=== PATIENT | female | born 1965 | race Caucasian/White ===

== ENCOUNTER 2016-12-31 13:13 | Emergency (ER) | payer OTHER ==
[~2016-12-31] VITALS: Ht 160 cm; Wt 93.0 kg
[~2016-12-31 13:13] MED LIST: LITH300 OR; TRAM50 PO; TRIA.1%T EX; ZYRT10TA12 PO
[2016-12-31 13:15] VITALS: BP 134/85; PULSE 95; RESP 18; TEMP 98.9; O2SAT 99
--- NOTE | 2016-12-31 13:33 | PD ---
HPI . acute on chronic back pain Chief Complaint: Back/ Neck Pain or Injury Time Seen by Provider: 13:29 Travel History International Travel<30 days: No Contact w/Intl Traveler<30days: No Traveled to known affect area: No History of Present Illness HPI 51-year-old female here with acute on chronic back pain. Apparently patient had some type of injury 1 year ago that she sustained while at a restaurant, she says she has been good since then, however about a month ago she recently developed back pain out of the blue. She says she got out of her bed one morning all of a sudden she's been suffering with back pain since then. She rates the pain as 10/10 without radiation other than in her lower back. She tells me she went to another hospital and was given muscle relaxers, anti- inflammatory and pain medication. She is here today requesting similar. She denies any bowel or bladder dysfunction. She denies any saddle anesthesia. PFSH Past Medical History Blood Disorders: No Bipolar Disorder: Yes Anxiety: Yes Depression: No Cancer: No Cardiovascular Problems: No Diminished Hearing: No Endocrine: No GERD: Yes Genitourinary: No Hepatitis: No Hiatal Hernia: No Immune Disorder: No Musculoskeletal: No Neurologic: No Psychiatric: Yes (BIPOLAR) Reproductive: No Respiratory: No Ulcer: No : 4 Para: 3 : 1 Tubal Ligation: Yes Past Surgical History Abdominal Surgery: No Appendectomy: No Cardiac Surgery: No Cholecystectomy: No Ear Surgery: No Endocrine Surgery: No Genitourinary Surgery: No Gynecologic Surgery: No Oral Surgery: Yes (JAW SURGERY-MAINE FX BOTH SIDES MANDIBLES-STEEL PLATE IN [place]IN 03/26) Social History Alcohol Use: Yes (8 TALL CANS OF BEER A DAY) Tobacco Use: Yes (1 PACK DAILY X 20 YEARS) Substance Use: No (MARIJUANA OCCASIONALLY) Allergies-Medications (Allergen,Severity, Reaction): Coded Allergies: No Known Allergies (Verified , 12/31/16) Reported Meds & Prescriptions Reported Meds & Active Scripts Active Prednisone 20 Mg Tab 20 Mg PO DAILY 5 Days Flexeril (Cyclobenzaprine HCl) 5 Mg Tab 5 Mg PO TID Zyrtec (Cetirizine HCl) 10 Mg Tab 10 Mg PO DAILY Kenalog (Triamcinolone) 0.1 % Cre 0.1 % EX BID 14 Days Ultram (Tramadol HCl) 50 Mg Tab 50 Mg PO Q4HPRN FOR PAIN Reported Lithotabs ([place] Carbonate) 300 Mg Tab 100 Mg OR TID Review of Systems General / Constitutional: No: Fever Eyes: No: Visual changes HENT: No: Headaches Cardiovascular: No: Chest Pain or Discomfort Respiratory: No: Shortness of Breath Gastrointestinal: No: Abdominal Pain Genitourinary: No: Dysuria Musculoskeletal: Positive: Pain (back pain ) Skin: No Rash Neurologic: No: Weakness Psychiatric: No: Depression Endocrine: No: Polydipsia Hematologic/Lymphatic: No: Easy Bruising Physical Exam Narrative GENERAL: AAO x 3, no acute distress, Well-nourished, well-developed patient. SKIN: Warm and dry. No visible rashes or bruising. HEAD: Normocephalic and atraumatic. EYES: No scleral icterus. No injection or drainage. ENT: No nasal drainage noted. Mucous membranes pink. Airway patent. NECK: Supple, trachea midline. No JVD. CARDIOVASCULAR: Regular rate and rhythm without murmurs, gallops, or rubs. RESPIRATORY: Breath sounds equal bilaterally. No accessory muscle use. No rhonchi or rales. GASTROINTESTINAL: visual inspection normal EXTREMITIES: No cyanosis or edema. BACK: Nontender without obvious deformity. No stepoff. NEURO: CN II-12 intact, gas charger strength normal b/l, UE and LE 5/5, no focal deficits PSYCH: AAO x 3, normal affect. Data Data Last Documented VS Vital Signs Date Time Temp Pulse Resp B/P (MAP) Pulse Ox O2 Delivery O2 Flow Rate FiO2 12/31/16 13:15 98.9 95 18 134/85 (101) 99 Room Air MDM Medical Decision Making Medical Screen Exam Complete: Yes Emergency Medical Condition: Yes Medical Record Reviewed: Yes Differential Diagnosis muscle spasms, acute on chronic back pain, lumbar radiculopathy Narrative Course 51 yr old female here with acute on chronic back pain. Upon examination and further questioning she appears to be having muscle spasms. I will provide her with muscle relaxer and steroids. I advised her to f/u with her PCP. I offered medication here in the ED and she declined stating she has to drive home. Patient verbalized understanding of instructions, questions were answered, and thanked me for their care. I advised them if their condition worsens, please return to the nearest emergency room for further care. Diagnosis Primary Impression: Muscle spasm Patient Instructions: General Instructions Additional Instructions: Muscle relaxers can cause drowsiness. Do not drive, swim or operate heavy machinery while using these medications. Please return to emergency department if your symptoms return or worsen. Follow up with your primary care provider. Take medications as prescribed. Med/Other Pt SpecificInfo: Prescription(s) given Scripts Prednisone (Prednisone) 20 Mg Tab 20 MG PO DAILY for 5 Days, #5 TAB 0 Refills Prov: Koko Sneed MD 12/31/16 Cyclobenzaprine (Flexeril) 5 Mg Tab 5 MG PO TID for Muscle Spasm, #21 TAB 0 Refills Prov: Koko Sneed MD 12/31/16 Disposition: 01 DISCHARGE HOME Condition: Stable Mckenzie Mehta Dec 31, 2016 13:33
[2016-12-31] MEDS ORDERED: PRED20 PO (13:34)
[2016-12-31] MEDS ORDERED: CYCL5TAB PO (13:34)
== END 2016-12-31 13:41 | disposition home or self-care (01) ==
LOC: NEPK 13:13
DX: M62.838 Other muscle spasm (principal); G89.29 Other chronic pain
CPT/HCPCS: 99284

== ENCOUNTER 2017-05-09 18:24 | Emergency (ER) | payer OTHER ==
[~2017-05-09] VITALS: Ht 167.6 cm; Wt 88.0 kg
[~2017-05-09 18:24] MED LIST changes: +CYCL5TAB PO; +PRED20 PO
[2017-05-09 18:25] VITALS: BP 118/56; PULSE 90; RESP 16; TEMP 98.2; O2SAT 99
[2017-05-09] MEDS ORDERED: IOHEXOL 350 MG/ML 10 ML VIAL (for RAD DIAG) IVCONTRAST ONE (18:25)
[2017-05-09 20:47] LABS: AUTOMATED NEUTROPHIL # 6.5 TH/MM3 (1.8-7.7); BASOPHIL # 0.1 TH/MM3 (0-0.2); BASOPHIL % 0.5 % (0.0-2.0); EOSINOPHIL # 0.1 TH/MM3 (0-0.4); EOSINOPHIL % 1.1 % (0.0-4.0); HEMATOCRIT 43.4 % (35.0-46.0); HEMOGLOBIN 14.9 GM/DL (11.6-15.3); LYMPH % 19.6 % (9.0-44.0); LYMPHOCYTE # 1.9 TH/MM3 (1.0-4.8); MEAN CELL VOLUME 90.8 FL (80.0-100.0); MEAN CORPUSCULAR HEMOGLOBIN 31.1 PG (27.0-34.0); MEAN CORPUSCULAR HGB CONC 34.3 % (32.0-36.0); MEAN PLATELET VOLUME 8.2 FL (7.0-11.0); MONO % 10.8 % (0.0-8.0); PLATELET COUNT 334 TH/MM3 (150-450); RED BLOOD COUNT 4.78 MIL/MM3 (4.00-5.30); RED CELL DISTRIBUTION WIDTH 14.2 % (11.6-17.2); WHITE BLOOD COUNT 9.6 TH/MM3 (4.0-11.0)
[2017-05-09 21:07] LABS: ALBUMIN 3.5 GM/DL (3.4-5.0); ALKALINE PHOSPHATASE 56 U/L (45-117); ALT (GPT) 38 U/L (10-53); AST (GOT) 29 U/L (15-37); BICARBONATE 24.9 MEQ/L (21.0-32.0); BLOOD UREA NITROGEN 8 MG/DL (7-18); CHLORIDE 102 MEQ/L (98-107); CREATININE 0.93 MG/DL (0.50-1.00); GLOMERULAR FILTRATION RATE 64 ML/MIN (>89); GLUCOSE,RANDOM 82 MG/DL (74-106); LIPASE 75 U/L (73-393); SODIUM (NA) 135 MEQ/L (136-145); TOTAL BILIRUBIN ADULT 0.3 MG/DL (0.2-1.0); TOTAL PROTEIN 7.1 GM/DL (6.4-8.2)
[2017-05-09] MEDS ORDERED: EZET10 PO (22:14)
[2017-05-09] MEDS ORDERED: LAMI250T PO (22:14)
[2017-05-09] MEDS ORDERED: TOPI100 PO (22:14)
[2017-05-09] MEDS ORDERED: ESCI10TA PO (22:14)
[2017-05-09] MEDS ORDERED: OXYB5TAB8 PO (22:14)
[2017-05-09] MEDS ORDERED: ONDANSETRON HCL 4 MG/2 ML VIAL IV PUSH ONE (22:30)
[2017-05-09] MEDS ORDERED: SODIUM CHLOR 0.9% 1000 ML INJ 1,000 ML IV ONE (22:30)
[2017-05-09] MEDS ORDERED: MORPHINE SULFATE 2 MG/ML INJ IV PUSH ONE (22:30)
[2017-05-09] MEDS ORDERED: POTASSIUM CHLORIDE 20 MEQ CONTROLLED RELEASE TAB PO ONE (22:30)
--- NOTE | 2017-05-09 22:30 | PD ---
HPI Chief Complaint: GI Complaint Time Seen by Provider: :18 Travel History International Travel<30 days: No Contact w/Intl Traveler<30days: No Traveled to known affect area: No History of Present Illness HPI 51yo F with PMH of HLD presents to the ED with c/o periumbilical pain for 3 days. Said it is sharp, intermittent and nonradiating. Associated with nonbloody vomiting and nonbloody diarrhea. No exacerbating or alleviating factors. Denies any fever, chest pain, sob, urinary complaints, focal weakness or numbness. PFSH Past Medical History Medical History: Denies Significant Hx Blood Disorders: No Bipolar Disorder: Yes Anxiety: Yes Depression: No Cancer: No Cardiovascular Problems: No Diminished Hearing: No Endocrine: No GERD: Yes Genitourinary: No Hepatitis: No Hiatal Hernia: No Immune Disorder: No Musculoskeletal: No Neurologic: No Psychiatric: Yes (BIPOLAR) Reproductive: No Respiratory: No Immunizations Current: Yes Ulcer: No Tetanus Vaccination: Unknown Influenza Vaccination: No ?: Not : 4 Para: 3 : 1 Tubal Ligation: Yes Past Surgical History Surgical History: No Previous Surgery Abdominal Surgery: No Appendectomy: No Cardiac Surgery: No Cholecystectomy: No Ear Surgery: No Endocrine Surgery: No Genitourinary Surgery: No Gynecologic Surgery: No Oral Surgery: Yes (JAW SURGERY-MAINE FX BOTH SIDES MANDIBLES-STEEL PLATE IN [place]IN 03/26) Social History Alcohol Use: No Tobacco Use: No Substance Use: No Allergies-Medications (Allergen,Severity, Reaction): Coded Allergies: No Known Allergies (Verified Allergy, Unknown, 05/09/17) Reported Meds & Prescriptions Reported Meds & Active Scripts Active Reported Escitalopram (Escitalopram Oxalate) 10 Mg Tab 10 Mg PO DAILY Topamax (Topiramate) 100 Mg Tab 100 Mg PO BID Lamisil (Terbinafine) 250 Mg Tab 250 Mg PO DAILY Ditropan (Oxybutynin Chloride) 5 Mg Tab 5 Mg PO Q12HR Zetia (Ezetimibe) 10 Mg Tab 10 Mg PO DAILY Review of Systems Except as stated in HPI: all other systems reviewed are Neg Physical Exam Narrative GENERAL: 51yo F in mild distress. SKIN: Focused skin assessment warm/dry. HEAD: Atraumatic. Normocephalic. EYES: Pupils equal and round. No scleral icterus. No injection or drainage. CARDIOVASCULAR: Regular rate and rhythm. No murmur appreciated. RESPIRATORY: No accessory muscle use. Clear to auscultation. Breath sounds equal bilaterally. GASTROINTESTINAL: Abdomen soft, Mild periumbilical ttp. Mild suprapubic ttp. No rebound tenderness or guarding. MUSCULOSKELETAL: No obvious deformities. No clubbing. No cyanosis. No edema. NEUROLOGICAL: Awake and alert. No obvious cranial nerve deficits. Motor grossly within normal limits. Normal speech. PSYCHIATRIC: Appropriate mood and affect; insight and judgment normal. Data Data Last Documented VS Vital Signs Date Time Temp Pulse Resp B/P (MAP) Pulse Ox O2 Delivery O2 Flow Rate FiO2 05/09/17 23:21 20 05/09/17 18:25 98.2 90 118/56 (76) 99 Orders Orders Complete Blood Count With Diff (05/09/17 18:55) Comprehensive Metabolic Panel (05/09/17 18:55) Lipase (05/09/17 18:55) Ondansetron Inj (Zofran Inj) (05/09/17 22:30) Sodium Chlor 0.9% 1000 Ml Inj (Ns 1000 M (05/09/17 22:30) Potassium Chloride (Kcl) (05/09/17 22:30) Magnesium (Mg) (05/09/17 22:19) Ct Abd/Pel W Iv Contrast(Rout) (05/09/17 ) Urinalysis - C+S If Indicated (05/09/17 22:30) Morphine Inj (Morphine Inj) (05/09/17 22:30) Iohexol 350 Inj (Omnipaque 350 Inj) (05/09/17 18:25) Labs Laboratory Tests Test 05/09/17 19:23 05/09/17 23:10 White Blood Count 9.6 TH/MM3 Red Blood Count 4.78 MIL/MM3 Hemoglobin 14.9 GM/DL Hematocrit 43.4 % Mean Corpuscular Volume 90.8 FL Mean Corpuscular Hemoglobin 31.1 PG Mean Corpuscular Hemoglobin Concent 34.3 % Red Cell Distribution Width 14.2 % Platelet Count 334 TH/MM3 Mean Platelet Volume 8.2 FL Neutrophils (%) (Auto) 68.0 % Lymphocytes (%) (Auto) 19.6 % Monocytes (%) (Auto) 10.8 % Eosinophils (%) (Auto) 1.1 % Basophils (%) (Auto) 0.5 % Neutrophils # (Auto) 6.5 TH/MM3 Lymphocytes # (Auto) 1.9 TH/MM3 Monocytes # (Auto) 1.0 TH/MM3 Eosinophils # (Auto) 0.1 TH/MM3 Basophils # (Auto) 0.1 TH/MM3 CBC Comment DIFF FINAL Differential Comment Blood Urea Nitrogen 8 MG/DL Creatinine 0.93 MG/DL Random Glucose 82 MG/DL Total Protein 7.1 GM/DL Albumin 3.5 GM/DL Calcium Level 9.0 MG/DL Alkaline Phosphatase 56 U/L Aspartate Amino Transf (AST/SGOT) 29 U/L Alanine Aminotransferase (ALT/SGPT) 38 U/L Total Bilirubin 0.3 MG/DL Sodium Level 135 MEQ/L Potassium Level 2.9 MEQ/L Chloride Level 102 MEQ/L Carbon Dioxide Level 24.9 MEQ/L Anion Gap 8 MEQ/L Estimat Glomerular Filtration Rate 64 ML/MIN Magnesium Level 1.8 MG/DL Lipase 75 U/L Urine Color LIGHT-YELLOW Urine Turbidity HAZY Urine pH 6.5 Urine Specific [place] 1.009 Urine Protein NEG mg/dL Urine Glucose (UA) NEG mg/dL Urine Ketones NEG mg/dL Urine Occult Blood LARGE Urine Nitrite NEG Urine Bilirubin NEG Urine Urobilinogen LESS THAN 2.0 MG/DL Urine Leukocyte Esterase NEG Urine RBC 1 /hpf Urine WBC 2 /hpf Urine Squamous Epithelial Cells 7 /hpf Urine Amorphous Sediment RARE Urine Bacteria OCC /hpf Urine Mucus FEW /lpf Microscopic Urinalysis Comment CULT NOT INDICATED MDM Medical Decision Making Medical Screen Exam Complete: Yes Emergency Medical Condition: Yes Differential Diagnosis Acute gastroenteritis vs. cystitis vs. colitis Narrative Course 51yo F with abdominal pain, vomiting, and diarrhea for 3 days. Labs reviewed, no leukocytosis. Mild hypokalemia at 2.9, replaced with 60meq KCl. Added magnesium level. Lipase normal. Magnesium 1.8. UA showed occasional bacteria. Culture not indicated. CT a/p showed gallstones. Appendix has normal morphology but maximum width is above normal limits at 7mm. Please correlate this nonspecific finding with clinical exam. Pt clinically has no RLQ pain. Pt currently has no abdominal pain, tolerating PO. Did offer observation overnight since she had periumbilical pain but pt refused. Strict return precautions given. Diagnosis Primary Impression: Abdominal pain Qualified Codes: R10.33 - Periumbilical pain Patient Instructions: General Instructions Departure Forms: Tests/Procedures Additional Instructions: Please return to the ED if symptoms worsen. Please follow up with your primary care physician in 2-3 days. Med/Other Pt SpecificInfo: Prescription(s) given Scripts Acetaminophen (Tylenol) 325 Mg Tab 650 MG PO Q6H Y for PAIN SCALE 1 TO 4, #20 TAB 0 Refills Prov: Sherri Almanzar DO 05/10/17 Disposition: 01 DISCHARGE HOME Condition: Stable Sherri Almanzar DO May 09, 2017 22:30
[2017-05-09 23:21] VITALS: RESP 20
[2017-05-09 23:25] LABS: AMORPHOUS SEDIMENT, URINE RARE; BACTERIA, URINE OCC /hpf; BILIRUBIN, URINE NEG (NEG); BLOOD, URINE LARGE (NEG); GLUCOSE,URINE NEG (NEG); KETONE, URINE NEG (NEG); MUCUS URINE FEW /lpf (OCC); NITRITE,URINE NEG (NEG); PH, URINE 6.5 (5.0-8.5); SQUAMOUS EPITHELIAL CELL URINE 7 /hpf (0-5); URINE COLOR LIGHT-YELLOW (YELLW/STRAW); URINE LEUKOCYTE ESTERASE NEG (NEG)
--- NOTE | 2017-05-09 23:35 | RADRPT ---
EXAM DATE/TIME: 05/09/2017 22:56 [facility] COMPARISON: No previous studies available for comparison. INDICATIONS : Periumbilical abdominal pain. IV CONTRAST: 95 cc Omnipaque 350 (iohexol) IV ORAL CONTRAST: No oral contrast ingested. RADIATION DOSE: 16.05 CTDIvol (mGy) MEDICAL HISTORY : gerd SURGICAL HISTORY : Tubal ligation. ENCOUNTER: Initial ACUITY: 1 day PAIN SCALE: 10/10 LOCATION: abdomen TECHNIQUE: Volumetric scanning of the abdomen and pelvis was performed. Using automated exposure control and ad justment of the mA and/or kV according to patient size, radiation dose was kept as low as reasonably achievable to obtain optimal diagnostic quality images. DICOM format image data is available electro nically for review and comparison. FINDINGS: LOWER LUNGS: The visualized lower lungs are clear. LIVER: Homogeneous density without lesion. There is no dilation of the intra-or extrahepatic biliary tree. Multiple gallstones with rim calcification measuring up to 1.4 cm in width.. SPLEEN: Normal size without lesion. PANCREAS: Within normal limits. KIDNEYS: Normal in size and shape. There is no mass, stone or hydronephrosis. ADRENAL GLANDS: Within normal limits. VASCULAR: There is no aortic aneurysm. BOWEL/MESENTERY: There is some mild dilation of loops of small bowel in the left hypogastric region measuring up to 3 cm in width. No air-fluid levels. The mid and distal small bowel and colon are normal in diameter. The appendix is located lateral to the cecum and measures up to 7 mm. The periappendiceal fat is in tact and there is some gas seen within the lumen near the appendiceal tip. ABDOMINAL WALL: Within normal limits. RETROPERITONEUM: There is no lymphadenopathy. BLADDER: No wall thickening or mass. REPRODUCTIVE: Anteverted uterus. Low-density structure in the left ovary measuring 2.7 cm, probably representing o varian cyst. No evidence of free fluid. INGUINAL: There is no lymphadenopathy or hernia. MUSCULOSKELETAL: Prominent bridging right lateral paravertebral ossification at L2-3. CONCLUSION: 1. Gallstones. No dilation of the intra-or extrahepatic biliary system. 2. Nonspecific appearance to several loops of small bowel in the left hypogastric chest with no dilat ion up to 3 cm. 3. The appendix has a normal morphology, but the maximum width is above normal limits at 7 mm. Audi fay correlate this nonspecific finding with clinical exam. Bryan Ortiz MD on May 09, 2017 at 23:21 Board Certified Radiologist. This report was verified electronically.
[2017-05-10] MEDS ORDERED: TYLE325T PO (00:55)
== END 2017-05-10 01:18 | disposition home or self-care (01) ==
LOC: NEPD 18:24
DX: R10.33 Periumbilical pain (principal); R19.7 Diarrhea, unspecified; E87.6 Hypokalemia; F31.9 Bipolar disorder, unspecified
CPT/HCPCS: 74177; 80053; 81001; 83690; 83735; 85025; 96361; 96374; 99285; J2270; J2405; J7030; Q9967

== ENCOUNTER 2017-09-25 17:39 | Emergency (ER) | payer MEDICAID, OTHER ==
[~2017-09-25] VITALS: Ht 160 cm; Wt 79.5 kg
[~2017-09-25 17:39] MED LIST changes: -CYCL5TAB PO; +ESCI10TA PO; +EZET10 PO; +LAMI250T PO; -LITH300 OR; +OXYB5TAB8 PO; -PRED20 PO; +TOPI100 PO; -TRAM50 PO; -TRIA.1%T EX; +TYLE325T PO; -ZYRT10TA12 PO
[2017-09-25 17:42] VITALS: BP 119/68; PULSE 81; RESP 18; TEMP 98.9; O2SAT 100
[2017-09-25] MEDS ORDERED: BUPIVACAINE HCL PF 0.5% 10 ML VIAL NERV BLOCK ONE (18:00)
[2017-09-25] MEDS ORDERED: LIDOCAINE 2%/EPINEPHrine 1:100,000 20ML MDV NERV BLOCK ONE (18:00)
[2017-09-25] MEDS ORDERED: TRIAMCINOLONE ACETONIDE 40 MG/ML VIAL I-ARTICULR ONE (18:00)
--- NOTE | 2017-09-25 18:08 | PD ---
HPI . Knee pain Chief Complaint: Musculoskeletal Complaint Time Seen by Provider: 17:50 Travel History International Travel<30 days: No Contact w/Intl Traveler<30days: No Traveled to known affect area: No History of Present Illness HPI This patient presents with a chief complaint of left knee pain. She has chronic problems with her left knee. She states that she has been seen by Dr. Gonzalez every 3 months for quite some time for arthrocentesis and steroid injection of the left knee. She states that it has been 5 months since she has seen him. She states that her insurance has changed and that he does not take her new insurance. She subsequently presents here requesting arthrocentesis and steroids in her left knee. She rates her pain currently at 10/10. It is exacerbated by walking. PFSH Past Medical History Blood Disorders: No Bipolar Disorder: Yes Anxiety: Yes Depression: No Cancer: No Cardiovascular Problems: No Diminished Hearing: No Endocrine: No GERD: Yes Genitourinary: No Hepatitis: No Hiatal Hernia: No Immune Disorder: No Musculoskeletal: No Neurologic: No Psychiatric: Yes (BIPOLAR) Reproductive: No Respiratory: No Immunizations Current: Yes Ulcer: No : 4 Para: 3 : 1 Tubal Ligation: Yes Past Surgical History Abdominal Surgery: No Appendectomy: No Cardiac Surgery: No Cholecystectomy: No Ear Surgery: No Endocrine Surgery: No Genitourinary Surgery: No Gynecologic Surgery: No Oral Surgery: Yes (JAW SURGERY-MAINE FX BOTH SIDES MANDIBLES-STEEL PLATE IN CHIN 03/26) Social History Alcohol Use: No Tobacco Use: No Substance Use: No Allergies-Medications (Allergen,Severity, Reaction): Coded Allergies: No Known Allergies (Verified Allergy, Unknown, 05/09/17) Reported Meds & Prescriptions Reported Meds & Active Scripts Active Tylenol (Acetaminophen) 325 Mg Tab 650 Mg PO Q6H PRN Reported Escitalopram (Escitalopram Oxalate) 10 Mg Tab 10 Mg PO DAILY Topamax (Topiramate) 100 Mg Tab 100 Mg PO BID Lamisil (Terbinafine) 250 Mg Tab 250 Mg PO DAILY Ditropan (Oxybutynin Chloride) 5 Mg Tab 5 Mg PO Q12HR Zetia (Ezetimibe) 10 Mg Tab 10 Mg PO DAILY Review of Systems Except as stated in HPI: all other systems reviewed are Neg Physical Exam Narrative GENERAL: Awake and alert and in no acute distress. SKIN: Warm and dry. Normal color and turgor. There is no erythema or warmth of the skin of the knee. HEAD: Normocephalic/atraumatic. EYES: Pupils are equal. Extraocular movements are intact. NECK: Normal range of motion. Supple. CARDIOVASCULAR: Regular rate and rhythm. RESPIRATORY: Nonlabored respirations. Normal sats. MUSCULOSKELETAL: Atraumatic. Normal muscle tone. Left knee effusion with tenderness to palpation. NEUROLOGICAL: A and O 3. Nonfocal. PSYCHIATRIC: Appropriate mood and affect. Data Data Last Documented VS Vital Signs Date Time Temp Pulse Resp B/P (MAP) Pulse Ox O2 Delivery O2 Flow Rate FiO2 09/25/17 17:42 98.9 81 18 119/68 (85) 100 Orders Orders Triamcinolone Inj (Kenalog-40 Inj) (09/25/17 18:00) Lidocai-Epi 2%-1:100,000 Inj (Xylocaine- (09/25/17 18:00) Bupivacaine Pf 0.5% Inj (Marcaine Pf 0.5 (09/25/17 18:00) MDM Medical Decision Making Medical Screen Exam Complete: Yes Emergency Medical Condition: Yes Differential Diagnosis Differential diagnosis of joint pain includes but is not limited to arthritis, gout, sprain/strain, fracture, dislocation, bursitis Narrative Course Patient presents with left knee pain. She has a left knee effusion. She is requesting arthrocentesis with steroid injection. Procedures Procedure Narrative Arthrocentesis: The skin was prepped with ChloraPrep. The skin was anesthetized with 3 cc of 1% lidocaine with epi. The joint was then aspirated using a 16-gauge needle. 75 cc of serosanguineous fluid was removed from the joint. The joint was then injected with a combination of 2 cc of 1% lidocaine with epi , 3 cc of 0.5% Marcaine and 40 mg of Kenalog. She tolerated the procedure well without complication. Diagnosis Primary Impression: Knee effusion, left Disposition: DISCHARGE HOME Condition: Stable Maggie Valenzuela MD Sep 25, 2017 18:08
== END 2017-09-25 19:03 | disposition home or self-care (01) ==
LOC: NEPD 17:39
DX: M25.462 Effusion, left knee (principal)
CPT/HCPCS: 20610; 99283; J3301